=== PATIENT | male | born 1985 | race Caucasian/White ===

== ENCOUNTER 2016-11-26 13:02 | Emergency (ER) | payer OTHER ==
[2016-11-26 13:25] VITALS: BP 113/78
--- NOTE | 2016-11-26 13:37 | UC ---
Upper Extremity HPI - HPI Summary HPI Summary: RIGHT WRIST PAIN SINCE YESTERDAY. PT HAD SURGERY WITH HARDWARE ON THAT WRIST AFTER AN INJURY in 2014 NO RECALL OF NEW INJURY. 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 Had to leave work due to pain. NO trauma. No numbness in the hand. No fever, no infection. [ End ] - History of Current Complaint Chief Complaint: UCUpperExtremity Stated Complaint: RIGHT WRIST PAIN Time Seen by Provider: 11/26/16 13:27 Hx Obtained From: Patient ?: No Onset/Duration: Sudden Onset Severity Initially: Moderate Severity Currently: Moderate Character: Sharp Aggravating Factor(s): Movement Alleviating Factor(s): Nothing Related History: Similar Episode/Dx As - Risk Factors Non-Orthopedic Risk Factor: Negative DVT Risk Factors: Negative, Recent Surgery - 2014 - Allergies/Home Medications Allergies/Adverse Reactions: Allergies Allergy/AdvReac Type Severity Reaction Status Date / Time No Known Allergies Allergy Verified 11/26/16 13:17 Home Medications: Home Medications Ibuprofen TAB* [Advil TAB*] 400 mg PO Q6H PRN 11/26/16 [History Confirmed ] busPIRone TAB* [Buspar TAB*] 5 mg PO BID 11/26/16 [History Confirmed 11/26/16] PMH/Surg Hx/FS Hx/Imm Hx Previously Healthy: Yes Endocrine History Of: Denies: Diabetes - Surgical History Surgical History: Yes Surgery Procedure, Year, and Place: right wrist surgery 09/08 - Family History Known Family History: Positive: None - Social History Occupation: Employed Full-time Lives: With Family Alcohol Use: None Substance Use Type: None Smoking Status (MU): Former Smoker Type: Cigarettes When Did the Patient Quit Smoking/Using Tobacco: 3 YEARS AGO Review of Systems Constitutional: Negative Skin: Negative Eyes: Negative ENT: Negative Respiratory: Negative Cardiovascular: Negative Gastrointestinal: Negative Genitourinary: Negative Motor: Negative Neurovascular: Negative Musculoskeletal: Arthralgia Neurological: Negative Psychological: Negative All Other Systems Reviewed And Are Negative: Yes Physical Exam Triage Information Reviewed: Yes Appearance: Well-Appearing, No Pain Distress, Well-Nourished Vital Signs: Initial Vital Signs Temp 98.1 F 11/26/16 13:18 Pulse 87 11/26/16 13:18 Resp 16 11/26/16 13:18 BP 113/78 11/26/16 13:18 Pulse Ox 98 11/26/16 13:18 Vital Signs Reviewed: Yes Eye Exam: Normal Neck: Positive: 1 Respiratory Exam: Normal Cardiovascular Exam: Normal Musculoskeletal Exam: Normal Musculoskeletal: Positive: Strength Intact, ROM Intact, No Edema, Other: - Rigtht wrist with midline scar well healed. strength 5/5. Pain with flexion and extension. Mild positive Francia. Neg Phalen but ROM reduced due to previous surgery. SKin color warm and pink. Cap refill < 3 sec. radial pulse brisk and intact. elbow exam WNL. Neurological Exam: Normal Psychological Exam: Normal Skin Exam: Normal Upper Extremity Course/Dx - Course Course Of Treatment: Wrist sprain Right wrist from over use at his job likely. injury from previous job. no trauma or infectious process of concern. with no red flags and short duration of sx will offer note for work, wrist splint, he will resume home PT from previous surgery and states will call Dr Campbell for f/u for xray and eval as he performed the surgery. - Differential Dx/Diagnosis Differential Diagnosis/HQI/PQRI: Arthritis, Bursitis, Strain, Sprain Provider Diagnoses: Wrist sprain. Right Discharge - Discharge Plan Condition: Good Disposition: HOME Patient Education Materials: Wrist Sprain (ED) Forms: *Work Release Referrals: Galo Campbell MD [Medical Doctor] - 5 Days Mackenzie Lynne MD [Primary Care Provider] - 3 Days (if needed )
== END 2016-11-26 13:58 | disposition home or self-care (01) ==
LOC: UCCORT 13:02
DX: S63.501A Unspecified sprain of right wrist, initial encounter (principal); X58.XXXA Exposure to other specified factors, initial encounter; Y93.9 Activity, unspecified; Y92.9 Unspecified place or not applicable; Z87.891 Personal history of nicotine dependence
CPT/HCPCS: 99211; G0463